=== PATIENT | male | born 1990 | race African-American/Black ===

== ENCOUNTER 2022-11-24 04:34 | Emergency (ER) | payer MEDICAID ==
[~2022-11-24] VITALS: Ht 167.6 cm; Wt 95.5 kg
[2022-11-24] MEDS ORDERED: ACETAMINOPHEN 325 MG TAB PO ONE (07:00)
[2022-11-24 08:27] VITALS: BP 135/64
== END 2022-11-24 08:35 | disposition home or self-care (01) ==
LOC: ER 04:34
DX: S00.83XA Contusion of other part of head, initial encounter (principal); Y08.89XA Assault by other specified means, initial encounter; Y93.89 Activity, other specified; Y92.89 Other specified places as the place of occurrence of the external cause; Y99.8 Other external cause status
CPT/HCPCS: 36415; 70450; 70486; 72125; 80320

== ENCOUNTER 2023-11-23 19:04 | Emergency (ER) | payer MEDICAID ==
[~2023-11-23] VITALS: Ht 172.7 cm; Wt 90.7 kg
[2023-11-23] MEDS ORDERED: levETIRAcetam 1000 mg/100ml 100 ML IV ONE (19:45)
[2023-11-23] MEDS ORDERED: LEVE500T40 PO (20:04)
[2023-11-23 20:45] VITALS: BP 147/103; PULSE 83; RESP 22; O2SAT 97
[2023-11-23] MEDS ORDERED: diphenhdrAMINE HCL 50 MG/1 ML VL IV ONE (21:05)
[2023-11-23] MEDS ORDERED: diphenhdrAMINE HCL 50 MG/1 ML VL ONE (21:08)
== END 2023-11-23 20:04 | disposition home or self-care (01) ==
LOC: EDBD 19:04 → ER 19:04
DX: G40.909 Epilepsy, unspecified, not intractable, without status epilepticus (principal); F10.10 Alcohol abuse, uncomplicated; Z91.199 Patient's noncompliance with other medical treatment and regimen due to unspecified reason; Y90.0 Blood alcohol level of less than 20 mg/100 ml
CPT/HCPCS: 96374; 99284; J1200; J1953